=== PATIENT | male | born 1975 | race American Indian/Alaskan Native ===

== ENCOUNTER 2020-05-14 17:46 | Emergency (ER) | payer SELFPAY ==
[2020-05-14] MEDS ORDERED: ASPIRIN 325 MG TAB PO ONE (17:52)
--- NOTE | 2020-05-14 17:55 | Event Note ---
ED Screening Note Date of service: 05/14/20 Time: 17:53 ED Screening Note: patient presents with SOB and palpitations, HR 190. This initial assessment/diagnostic orders/clinical plan/treatment(s) is/are subject to change based on patients health status, clinical progression and re- assessment by fellow clinical providers in the ED. Further treatment and workup at subsequent clinical providers discretion. Patient/guardian urged not to elope from the ED as their condition may be serious if not clinically assessed and managed. Initial orders include: cardiac profile. HR 160s, EKG looks like SVT, transferred emergent to to main ED.
[2020-05-14] MEDS ORDERED: SODIUM CHLORIDE 0.9% 1000 ML 1,000 ML ONE (18:09)
--- NOTE | 2020-05-14 18:18 | Emergency Department Report ---
ED General Adult HPI - General Chief complaint: Dyspnea/Respdistress Stated complaint: KVNG Time Seen by Provider: 05/14/20 18:12 Source: patient Mode of arrival: Ambulatory Limitations: No Limitations - History of Present Illness Initial comments: 44-year-old male with no past medical history, presents to ED for elevated blood pressure. Patient states he normally checks his blood pressure regularly, almost daily. Patient states this evening he checked his blood pressure at home and systolic BP was in the 190s; reports that it is normally in the 130-140s. Patient states he repeated it and it was still showing systolic BP of 190s. Patient states he decided to come to the emergency room, because he states he did not want anything bad to happen to him. Patient states when he got into his car he began short of breath, with his heart racing. Upon ED arrival, triage nurse noted that patient was diaphoretic. He denies any chest pain. He denies any tobacco or drug use. Reports occasional alcohol use. Patient was placed in the treatment room. First blood pressure shows BP of 121/83. I informed patient of his normal blood pressure. He now feels much better, HR also improving. PCP: [facility] -: This evening Consistency: constant Improves with: none Worsens with: none Associated Symptoms: shortness of breath. denies: chest pain, headaches, nausea/vomiting - Related Data Previous Rx's Medication Instructions Recorded Last Taken Type Amlodipine Besylate [Norvasc] 5 mg PO QDAY #30 tablet 05/14/20 Unknown Rx Allergies Allergy/AdvReac Type Severity Reaction Status Date / Time No Known Allergies Allergy Unverified 05/14/20 17:53 ED Review of Systems ROS: Stated complaint: KVNG Other details as noted in HPI Comment: All other systems reviewed and negative Constitutional: denies: fever Respiratory: shortness of breath. denies: cough Cardiovascular: palpitations. denies: chest pain Gastrointestinal: denies: abdominal pain, vomiting, diarrhea Neurological: denies: headache, vertigo ED Past Medical Hx - Past Medical History Previous Medical History?: No - Surgical History Past Surgical History?: No - Medications Home Medications: Home Medications Medication Instructions Recorded Confirmed Last Taken Type Amlodipine Besylate [Norvasc] 5 mg PO QDAY #30 tablet 05/14/20 Unknown Rx ED Physical Exam - General Limitations: No Limitations General appearance: alert, anxious - Head Head exam: Present: atraumatic, normocephalic - Eye Eye exam: Present: normal appearance, EOMI - ENT ENT exam: Present: mucous membranes moist - Neck Neck exam: Present: normal inspection - Respiratory Respiratory exam: Present: normal lung sounds bilaterally. Absent: respiratory distress - Cardiovascular Cardiovascular Exam: Present: normal rhythm, tachycardia - GI/Abdominal GI/Abdominal exam: Present: soft. Absent: distended, tenderness - Extremities Exam Extremities exam: Present: normal inspection - Neurological Exam Neurological exam: Present: alert, oriented X3 - Psychiatric Psychiatric exam: Present: normal affect, normal mood - Skin Skin exam: Present: warm, dry, intact, normal color ED Course Vital Signs 05/14/20 05/14/20 05/14/20 17:55 18:06 18:15 Temperature 98.7 F Pulse Rate 198 H 170 H 169 H Respiratory 34 H 19 Rate Blood Pressure 123/85 Blood Pressure 123/85 [Right] O2 Sat by Pulse 100 100 Oximetry 05/14/20 05/14/20 05/14/20 18:30 18:45 19:35 Temperature Pulse Rate 99 H 101 H 120 H Respiratory 12 14 Rate Blood Pressure 162/112 151/112 205/143 Blood Pressure [Right] O2 Sat by Pulse 100 99 Oximetry 05/14/20 21:38 Temperature Pulse Rate 96 H Respiratory 13 Rate Blood Pressure Blood Pressure 178/124 [Right] O2 Sat by Pulse 99 Oximetry - Reevaluation(s) Reevaluation #1: 05/14/20 18:36 Repeat EKG shows sinus tachycardia with a rate of 101. Reevaluation #2: 05/14/20 19:20 Patient's heart rate and blood pressure have increased again. Amlodipine ordered. I spoke again with patient to find out if he is going to any sort of stressful situations currently. Patient states over the weekend, he found out that his is cheating on him, and he has been very stressed out over this discovery. Blood pressure and heart rate likely secondary to this situation. ED Medical Decision Making - Lab Data Result diagrams: 05/14/20 18:03 05/14/20 18:03 - EKG Data -: EKG Interpreted by Me EKG shows normal: sinus rhythm, axis, intervals, QRS complexes, ST-T waves Rate: tachycardia (rate 162) - EKG Data Interpretation: no acute changes - Radiology Data Radiology results: report reviewed, image reviewed - Medical Decision Making 44-year-old male presents to ED with complaint of hypertension. Initially found to be normotensive, however patient was tachycardic. He initially reported some shortness of breath as well after seeing his elevated blood pressure reading at home. This initial tachycardia and dyspnea was likely secondary to some component of anxiety, because after patient was told that his blood pressure was normal, his tachycardia resolved. EKG shows sinus tach, no ST changes. Troponin is normal. D-dimer is negative. Chest x-ray reported findings of volume overload, mild CHF, however O2 sats are normal and BNP is within normal limits. Later during ED stay, patient's blood pressure gradually increased and heart rate also did increase. I spoke with patient with again and he revealed to me that he has been experiencing lots of stress over the past couple of days after finding out that his has been cheating on him. This likely explains his abnormal vital signs. Patient given Norvasc here in the ED and a prescription to go home on. He has been advised to follow-up with his PCP. Return precautions given. - Differential Diagnosis Anxiety, arrhythmia, uncontrolled hypertension Critical care attestation.: If time is entered above; I have spent that time in minutes in the direct care of this critically ill patient, excluding procedure time. ED Disposition Clinical Impression: Hypertension Disposition: DC-01 TO HOME OR SELFCARE Is pt being admited?: No Condition: Stable Instructions: Panic Attack, [id number], Hypertension, Adult, Hypertension (ED) Prescriptions: Amlodipine Besylate [Norvasc] 5 mg PO QDAY #30 tablet Referrals: PRIMARY [facility] [Primary Care Provider] - 3-5 Days [facility] [Provider Group] - 3-5 Days Time of Disposition: 19:31
[2020-05-14 18:19] LABS: Basophils # (Auto) 0.1 K/mm3 (0.0-0.1); Basophils % (Auto) 2.2 % (0.0-1.8); Eosinophils # (Auto) 0.1 K/mm3 (0.0-0.4); Lymphocytes % (Auto) 32.6 % (13.4-35.0); Mean Corpuscular HGB Conc 34 % (32-34); Mean Corpuscular Volume 94 fl (84-94); Monocytes # (Auto) 0.7 K/mm3 (0.0-0.8); Monocytes % (Auto) 11.8 % (0.0-7.3); Platelet Count 212 K/mm3 (140-440); Red Blood Count 4.68 M/mm3 (3.65-5.03); Red Cell Distribution Width 13.2 % (13.2-15.2)
[2020-05-14 18:28] LABS: INR 0.96 (0.87-1.13); Partial Thromboplastin Time 24.4 Sec. (24.2-36.6)
--- NOTE | 2020-05-14 18:38 | XRay Report ---
XR chest 1V ap INDICATION / CLINICAL INFORMATION: Chest pain COMPARISON: None available. FINDINGS: SUPPORT DEVICES: None. HEART / MEDIASTINUM: Heart size is prominent with borderline pulmonary vasculature congestion. LUNGS / PLEURA: No significant pulmonary or pleural abnormality. No pneumothorax. ADDITIONAL FINDINGS: No significant additional findings. IMPRESSION: Findings of mild CHF/volume overload. Signer Name: Jefferson Davila MD Signed: 05/14/2020 6:33 PM Workstation Name: [id number]
[2020-05-14] MEDS ORDERED: SODIUM CHLORIDE 0.9% 1000 ML 1,000 ML IV ONE (18:39)
[2020-05-14 18:42] LABS: Alanine Aminotransferase 60 units/L (7-56); Albumin 4.7 g/dL (3.9-5); BUN/Creatinine Ratio 10; Blood Urea Nitrogen 11 mg/dL (9-20); Calcium 9.7 mg/dL (8.4-10.2); Hemolysis Index 46
[2020-05-14 19:01] LABS: Amphetamine Screen,Urine Negative; Benzodiazepines Screen,Urine Negative; Cannabinoid Screen,Urine Negative; Cocaine Screen,Urine Negative; Methadone Screen,Urine Negative; Opiate Screen,Urine Negative
[2020-05-14] MEDS ORDERED: amLODIPine 5 MG TAB PO ONE (19:22)
[2020-05-14 21:39] VITALS: BP 178/124
== END 2020-05-14 21:42 | disposition home or self-care (01) ==
LOC: ED 17:46
DX: I10 Essential (primary) hypertension (principal)
CPT/HCPCS: 36415; 71045; 80053; 80307; 83880; 84484; 85025; 85379; 85610; 85730; 93005; 96360; 99284; J7030